=== PATIENT | male | born 1985 | race Two or more races ===

== ENCOUNTER → 2021-01-22 | Outpatient (CLI) | payer OTHER ==
--- NOTE | 2021-01-22 16:55 | CARD ---
MR#: [id number] Date of Study: 01/22/2021 Ordering Physician: MALATHI SIMPSON, Referring Physician: Ron LUKE: Mar Pretty LAURA APPROVED REPORT INDICATION Chest Pain Reason : Patient complained of pain STRESS ECHO FINDINGS The resting Echocardiogram showed normal left ventricular systolic contractility with an estimated Ej ection Fraction of about 60 %. The Stress Echocardiogram showed normal augmentation of myocardial wall segments using a 16 segment m glo. The Stress Echocardiogram left ventricular systolic contractility has an estimated Ejection Fraction of about 75%. Test Type: Exercise Stress Nurse/Tech: Tom Cruz RN Test Indications: Dyspnea on exertion Cardiac History and Allergies: Father 8mths ago at age 50 from OR; See EMR. Medications: See EMR. Medical History: See EMR. Resting ECG: SR Resting Heart Rate: 57 bpm Resting Blood Pressure: 144/69mmHg Pretest Chest Pain: No chest pain Nurse/Tech Notes Lungs CTA, Heart tones regular. Stress Symptoms No chest pain or symptoms. Pt had ST depression in stage 4 in leads V3, V4, V5, V6. Pt started to be come fatigued and needed to end test. ST depression resolved within 1 min of recovery. POST EXERCISE Reason for Termination: Fatigue Target HR: Yes Max HR: 176 bpm 94% of Maximum Predicted HR: 187 bpm Exercise duration: 10:25 min:sec, 4 Stage Exercise capacity: 12.8METs Max Blood Pressure: 170/64mmHg Blood Pressure response to exercise: Normal blood pressure response during stress. Heart Rate response to exercise: WNL Chest Pain: No. Arrhythmia: No. ST Change: Yes. See Stress sypmtoms INTERPRETATION Stress EKG Conclusion: Baseline EKG showed sinus rhythm. ST depressions noted in inferolateral leads at peak stress. No arrhythmias. <Conclusion> Treadmill exercise stress echocardiogram did not show any evidence of ischemia or infarct. Normal left ventricle systolic function with ejection fraction estimated at 60%. Patient had good activity tolerance. Low risk for cardiac events. Signed by : Malathi Simpson, Electronically Approved : 01/22/2021 16:55:13
== END ==
LOC: ECHO 12:46
PROVIDERS: ATTEND Internal Medicine Cardiovascular Disease
DX: R06.09 Other forms of dyspnea (principal); I25.2 Old myocardial infarction
CPT/HCPCS: 93017; 93350